=== PATIENT | male | born 1955 | race Caucasian/White ===

== ENCOUNTER 2023-10-18 20:35 | Inpatient (IN) | payer MEDICARE, BC ==
[~2023-10-18] VITALS: Ht 182.9 cm; Wt 92.1 kg
[2023-10-18] MEDS ORDERED: CHOL10005 PO (21:02)
[2023-10-18] MEDS ORDERED: CARB1CAP7 PO (21:02)
[2023-10-18] MEDS ORDERED: ROTI1PAT12 TD (21:02)
[2023-10-18] MEDS ORDERED: ACET-3117 PO (21:02)
[2023-10-19] MEDS: BLOOD SUGAR DIAGNOSTIC 1 EACH STRIP VI ONE (00:30)
[2023-10-19] MEDS ORDERED: MAGNESIUM HYDROXIDE 30 ML LIQUID UDC PO PRN (00:30)
[2023-10-19] MEDS ORDERED: LORAZEPAM 0.5 MG TABLET PO PRN (00:30)
[2023-10-19] MEDS ORDERED: MAG HYDROX/AL HYDROX/SIMETH 30 ML LIQUID UDC PO PRN (00:30)
[2023-10-19 00:34] VITALS: BP 136/87; TEMP 97.7; O2SAT 100
[2023-10-19 07:30] VITALS: BP 123/74; TEMP 98.6; O2SAT 97
[2023-10-19] MEDS ORDERED: Medication Not On Formulary EA (Acetaminophen 650 MG) PO PRN (13:15)
[2023-10-19 16:56] VITALS: BP 148/106; TEMP 98.7; O2SAT 98
[2023-10-19] MEDS: CARBIDOPA/LEVODOPA CR 25-100MG TABLET.SA PO SCH (17:45)
[2023-10-19] MEDS ORDERED: LEVODOPA PO SCH (18:00)
[2023-10-19] MEDS ORDERED: CARBIDOPA PO SCH (18:00)
[2023-10-19 20:00] VITALS: BP 194/106; TEMP 97.5; O2SAT 96
[2023-10-19 20:30] VITALS: BP 124/81
[2023-10-19] MEDS: LORAZEPAM 1 MG TABLET PO PRN (20:40)
[2023-10-19] MEDS: QUETIAPINE FUMARATE 25 MG TABLET PO SCH (22:18)
[2023-10-20 08:02] VITALS: BP 155/99; TEMP 98; O2SAT 98
[2023-10-20] MEDS: CHOLECALCIFEROL 1,000 UNIT TABLET PO SCH (08:45)
[2023-10-20] MEDS ORDERED: Medication Not On Formulary EA (Cholecalciferol (Vitamin D3) (Vitamin D3) 1 CAP) PO SCH (09:00)
[2023-10-20 09:39] LABS: BASOPHILS # (AUTO) 0.3 K/UL (0.0-0.2); BASOPHILS % (AUTO) 1.9 % (0.0-2.0); EOSINOPHILS # (AUTO) 0.2 K/uL (0.0-0.7); EOSINOPHILS % (AUTO) 0.9 % (0.0-7.0); HEMATOCRIT 44.7 % (36.7-47.1); HEMOGLOBIN 15.2 g/dL (12.5-16.3); LYMPHOCYTES # (AUTO) 0.9 K/uL (0.8-4.8); LYMPHOCYTES % (AUTO) 5.4 % (20.5-51.5); MEAN CORPUSCULAR HGB CONC 34 g/dL (32.5-36.3); MEAN CORPUSCULAR VOLUME 93.8 fL (73.0-96.2); MONOCYTES # (AUTO) 0.6 K/uL (0.1-1.30); MONOCYTES % (AUTO) 3.6 % (0.0-11.0); NEUTROPHILS # (AUTO) 14.9 K/uL (1.8-8.9); NEUTROPHILS % (AUTO) 88.2 % (38.5-71.5); PLATELET COUNT (AUTO) 301 K/uL (152-348); RED BLOOD CELL COUNT(AUTO) 4.76 MIL/uL (4.06-5.63); RED CELL DISTRIBUTION WIDTH 13.8 % (12.1-16.2); WHITE BLOOD COUNT (AUTO) 16.9 K/uL (3.6-10.2)
[2023-10-20 09:50] LABS: DIFFERENTIAL COMMENT 1
[2023-10-20 10:24] LABS: THYROID STIMULATING HORMONE 1.482 mIU/mL (0.358-3.740)
[2023-10-20 10:31] LABS: ALBUMIN 4.2 g/dL (3.4-5.0); BILIRUBIN,DIRECT 0.2 mg/dL (0.0-0.2); BILIRUBIN,TOTAL 0.7 mg/dL (0.2-1.0)
[2023-10-20 15:14] VITALS: BP 139/84; TEMP 98; O2SAT 96
[2023-10-20] MEDS: CYANOCOBALAMIN 1000 MCG/ML VIAL IM SCH (17:52)
[2023-10-20 20:00] VITALS: BP 147/89; TEMP 97.7; O2SAT 98
[2023-10-20 21:33] LABS: *BILIRUBIN,URIN NEGATIVE (NEGATIVE); *BLOOD, URINE NEGATIVE (NEGATIVE); *CLARITY,URINE CLEAR (CLEAR); *COLOR,URINE YELLOW (YELLOW); *KETONES,URINE TRACE (NEGATIVE); *PROTEIN,URINE NEGATIVE (NEGATIVE); *UROBILINOGEN,URINE 0.2 E.U./dl (NORMAL); LEUKOCYTE ESTERASE ,URINE NEGATIVE (NEGATIVE); NITRITE, URINE NEGATIVE (NEGATIVE); PH,URINE 6.5 (5.0-8.0); UGLUCOSE NEGATIVE (NEGATIVE)
[2023-10-21 08:00] VITALS: BP 159/95; TEMP 98; O2SAT 99
[2023-10-21 08:16] LABS: BASOPHILS # (AUTO) 0.1 K/UL (0.0-0.2); BASOPHILS % (AUTO) 1.2 % (0.0-2.0); EOSINOPHILS # (AUTO) 0.2 K/uL (0.0-0.7); HEMATOCRIT 43.1 % (36.7-47.1); HEMOGLOBIN 14.7 g/dL (12.5-16.3); LYMPHOCYTES # (AUTO) 1.3 K/uL (0.8-4.8); LYMPHOCYTES % (AUTO) 15.5 % (20.5-51.5); MEAN CORPUSCULAR HEMOGLOBIN 31.8 uug (23.8-33.4); MEAN CORPUSCULAR HGB CONC 34 g/dL (32.5-36.3); MEAN CORPUSCULAR VOLUME 93.2 fL (73.0-96.2); MONOCYTES # (AUTO) 0.5 K/uL (0.1-1.30); MONOCYTES % (AUTO) 5.9 % (0.0-11.0); NEUTROPHILS # (AUTO) 6.2 K/uL (1.8-8.9); NEUTROPHILS % (AUTO) 75.4 % (38.5-71.5); PLATELET COUNT (AUTO) 267 K/uL (152-348); RED BLOOD CELL COUNT(AUTO) 4.62 MIL/uL (4.06-5.63); RED CELL DISTRIBUTION WIDTH 13.5 % (12.1-16.2); WHITE BLOOD COUNT (AUTO) 8.3 K/uL (3.6-10.2)
[2023-10-21 08:28] LABS: DIFFERENTIAL COMMENT 1
[2023-10-21] MEDS: AMLODIPINE 2.5 MG TABLET PO SCH (08:40)
[2023-10-21] MEDS: CARBIDOPA/LEVODOPA 25-100MG TABLET PO SCH (10:44)
[2023-10-21 16:12] VITALS: BP 103/73; TEMP 98; O2SAT 98
[2023-10-21 20:00] VITALS: BP 124/91; TEMP 97.6; O2SAT 98
[2023-10-21] MEDS: QUETIAPINE FUMARATE 25 MG TABLET PO SCH (20:13)
[2023-10-22 07:30] VITALS: BP 129/70; TEMP 98; O2SAT 97
[2023-10-22] MEDS: ACETAMINOPHEN 325 MG TABLET PO PRN (08:24)
[2023-10-22] MEDS ORDERED: CARBIDOPA/LEVODOPA 25-100MG TABLET PO SCH (13:00)
[2023-10-22] MEDS ORDERED: RYTARY PO SCH (13:00)
[2023-10-22] MEDS: [UNRECOGNIZED DRUG - OTHER] TOP SCH (13:42)
[2023-10-22] MEDS: [UNRECOGNIZED DRUG - OTHER] PO SCH (13:42)
[2023-10-22] MEDS: ROTIGOTINE TOP SCH (13:42)
[2023-10-22 16:42] VITALS: BP 113/77; TEMP 98.2; O2SAT 96
[2023-10-22 20:00] VITALS: BP 117/79; TEMP 98; O2SAT 97
[2023-10-22] MEDS: ZOLPIDEM 5 MG TABLET PO PRN (21:48)
[2023-10-23 08:52] VITALS: BP 151/89; TEMP 97.8; O2SAT 98
[2023-10-23] MEDS ORDERED: MISCELLANEOUS MED TD SCH (09:00)
[2023-10-23 11:03] LABS: BASOPHILS # (AUTO) 0.1 K/UL (0.0-0.2); BASOPHILS % (AUTO) 0.9 % (0.0-2.0); EOSINOPHILS # (AUTO) 0.1 K/uL (0.0-0.7); EOSINOPHILS % (AUTO) 1.5 % (0.0-7.0); HEMATOCRIT 41.9 % (36.7-47.1); HEMOGLOBIN 14.6 g/dL (12.5-16.3); LYMPHOCYTES % (AUTO) 12.8 % (20.5-51.5); MEAN CORPUSCULAR HEMOGLOBIN 32.4 uug (23.8-33.4); MEAN CORPUSCULAR HGB CONC 35 g/dL (32.5-36.3); MEAN CORPUSCULAR VOLUME 93.4 fL (73.0-96.2); MONOCYTES # (AUTO) 0.5 K/uL (0.1-1.30); NEUTROPHILS # (AUTO) 5.9 K/uL (1.8-8.9); NEUTROPHILS % (AUTO) 78.8 % (38.5-71.5); PLATELET COUNT (AUTO) 232 K/uL (152-348); RED BLOOD CELL COUNT(AUTO) 4.49 MIL/uL (4.06-5.63); RED CELL DISTRIBUTION WIDTH 13.5 % (12.1-16.2); WHITE BLOOD COUNT (AUTO) 7.5 K/uL (3.6-10.2)
[2023-10-23 11:24] LABS: DIFFERENTIAL COMMENT 1
[2023-10-23 16:51] VITALS: BP 110/65; TEMP 97.9; O2SAT 98
[2023-10-23 19:56] VITALS: BP 132/85; TEMP 98.1; O2SAT 98
[2023-10-24 08:45] VITALS: BP 153/92; TEMP 98; O2SAT 97
[2023-10-24 16:07] VITALS: BP 111/69; TEMP 98; O2SAT 97
[2023-10-24 19:59] VITALS: BP 126/74; TEMP 98.1; O2SAT 96
[2023-10-24] MEDS: QUETIAPINE FUMARATE 25 MG TABLET PO SCH (20:12)
[2023-10-25 08:05] VITALS: BP 150/70; TEMP 98; O2SAT 93
[2023-10-25] MEDS: OLANZAPINE 10 MG VIAL IM ONE (13:44)
[2023-10-25 15:27] VITALS: BP 118/66; TEMP 98; O2SAT 98
[2023-10-25 23:03] VITALS: BP 124/73; TEMP 98.2; O2SAT 96
[2023-10-26] MEDS: LITHIUM CARBONATE 150 MG CAPSULE PO SCH (08:43)
[2023-10-26 18:18] VITALS: BP 110/66; TEMP 97.8; O2SAT 96
[2023-10-26 20:00] VITALS: BP 150/89; TEMP 97.8; O2SAT 94
[2023-10-27 08:13] VITALS: BP 148/88; TEMP 98; O2SAT 98
[2023-10-27 15:32] VITALS: BP 151/93; TEMP 98; O2SAT 98
[2023-10-27 20:00] VITALS: BP 131/80; TEMP 98.8; O2SAT 95
[2023-10-28 08:07] VITALS: BP 161/78; TEMP 98; O2SAT 98
[2023-10-28 15:36] VITALS: BP 138/87; TEMP 98; O2SAT 98
[2023-10-28 19:54] VITALS: BP 155/74; TEMP 98.4; O2SAT 98
[2023-10-28] MEDS: QUETIAPINE FUMARATE 100 MG TABLET PO SCH (20:42)
[2023-10-28] MEDS: TRAZODONE 50 MG TABLET PO SCH (20:42)
[2023-10-28] MEDS: MELATONIN 3 MG TABLET PO SCH (20:43)
[2023-10-29 08:15] VITALS: BP 137/74; TEMP 98.1; O2SAT 97
[2023-10-29 17:00] VITALS: BP 120/74; TEMP 98.1; O2SAT 97
[2023-10-29] MEDS: TEMAZEPAM 7.5 MG CAPSULE PO PRN (23:06)
[2023-10-30 07:53] VITALS: BP 133/72; TEMP 97.4; O2SAT 100
[2023-10-30 16:54] VITALS: BP 155/92; TEMP 98.4; O2SAT 97
[2023-10-30 20:00] VITALS: BP 164/82; TEMP 97.9; O2SAT 100
[2023-10-30] MEDS: CARBIDOPA/LEVODOPA CR 50-200MG TABLET.SA PO SCH (22:17)
[2023-10-31 08:06] VITALS: BP 125/68; TEMP 98.1; O2SAT 98
[2023-10-31] MEDS ORDERED: LITHIUM CARBONATE 150 MG CAPSULE PO SCH (09:00)
[2023-10-31] MEDS: LITHIUM CARBONATE 300 MG CAPSULE PO SCH (09:20)
[2023-10-31 15:55] VITALS: BP 145/87; TEMP 98; O2SAT 98
[2023-10-31 20:05] VITALS: BP 124/81; TEMP 98.1; O2SAT 96
[2023-11-01 07:30] VITALS: BP 150/88; TEMP 98.2; O2SAT 96
[2023-11-01 09:03] VITALS: BP 124/81
== END 2023-11-01 11:45 | DRG 885 ==
LOC: ER 20:39 → GPS 22:20
PROVIDERS: ADMIT Psychiatry & Neurology Psychiatry; ATTEND Nurse Practitioner Acute Care
DX: F29 Unspecified psychosis not due to a substance or known physiological condition (principal); F02.83 Dementia in other diseases classified elsewhere, unspecified severity, with mood disturbance; F02.82 Dementia in other diseases classified elsewhere, unspecified severity, with psychotic disturbance; G20.A1 Parkinson's disease without dyskinesia, without mention of fluctuations; F09 Unspecified mental disorder due to known physiological condition; T44.995A Adverse effect of other drug primarily affecting the autonomic nervous system, initial encounter; Y92.019 Unspecified place in single-family (private) house as the place of occurrence of the external cause; G25.81 Restless legs syndrome; I10 Essential (primary) hypertension; R29.6 Repeated falls; G62.9 Polyneuropathy, unspecified; G89.29 Other chronic pain; K21.9 Gastro-esophageal reflux disease without esophagitis; Z79.899 Other long term (current) drug therapy; Z88.2 Allergy status to sulfonamides; Z91.013 Allergy to seafood; E53.8 Deficiency of other specified B group vitamins; E78.5 Hyperlipidemia, unspecified
CPT/HCPCS: 36415; 70030-TC; 70450; 83921; 84443; 84520; 85025; J2358; J3420